=== PATIENT | male | born 1985 | race Caucasian/White ===

== ENCOUNTER 2020-04-21 12:19 | Emergency (ER) | payer BC, SELFPAY ==
[2020-04-21 12:40] VITALS: BP 147/91; PULSE 91; RESP 20; TEMP 37.3; O2SAT 100
--- NOTE | 2020-04-21 12:43 | ED.FALL ---
HPI - Fall General Stated Complaint: Rib pain Time Seen by Provider: 04/21/20 12:43 Source: patient and RN notes reviewed History of Present Illness HPI Narrative: Patient is a 34-year-old male who presents the urgent care with complaints of right rib pain due to a fall approximately 2 weeks ago off a angel at work. Patient states he had a week off and went back today and was unable to lift the heavy boxes. Patient states that work is wanting him to be put on restrictions or released to work before he goes back. Patient has not taken anything [id number] for his pain. Denies any other acute complaints. No acute distress noted. Patient read the plan of care. Related Data Allergies Allergy/AdvReac Type Severity Reaction Status Date / Time Fish Containing Products Allergy Unknown Rash Verified 04/21/20 12:37 Review of Systems Review of Systems: Narrative: CONSTITUTIONAL: Denies fever, chills, or sweats. EYES: Denies visual changes, redness, or discharge. ENT: Denies rhinorrhea, congestion, sore throat, or otalgia. CARDIOVASCULAR: Denies chest pain, palpitations, or edema. RESPIRATORY: Denies cough or dyspnea. GASTROINTESTINAL: Denies abdominal pain, nausea, vomiting, or diarrhea. GENITOURINARY: Denies dysuria or hematuria. SKIN: Denies rash or itching. MUSCULOSKELETAL: Reports of right side/rib pain. Denies back pain, joint pain, or myalgia. NEUROLOGIC: Denies headache, numbness, or weakness. All other systems reviewed are negative, except as documented in HPI. PMFSH Comments At the time of my signature, I reviewed and agree with the nursing past medical, surgical, social, and family history. There is no relevant family history pertinent to the patient complaint. Exam Narrative: Exam Narrative: GENERAL: This is a well-nourished, well-developed patient, in no apparent distress. HEAD: normocephalic, atraumatic. EYES: PERRL. Sclera clear/white. Vision is grossly intact. EARS: External ears normal NOSE: External nose normal with no obvious nasal discharge, nares without redness, no rhinorrhea. THROAT: Mucous membranes moist NECK: Neck supple CARDIOVASCULAR: Regular rate and rhythm without murmurs, gallops, or rubs. RESPIRATORY: Mild lateral/anterior right rib tenderness without any ecchymosis. Clear to auscultation. Breath sounds equal bilaterally. No wheezes, rales, or rhonchi. SKIN: warm, intact with no suspicious lesions or rash, good texture and turgor. NEURO: awake, alert, and oriented to person, place and time. There were no obvious focal neurologic abnormalities. EXTREMITIES: No clubbing, cyanosis, or edema. Course Vital Signs Vital signs: Vital Signs Temperature 99.2 F 04/21/20 12:40 Pulse Rate 91 04/21/20 12:40 Respiratory Rate 20 04/21/20 12:40 Blood Pressure 147/91 H 04/21/20 12:40 Pulse Oximetry 100 04/21/20 12:40 Temperature 99.2 F 04/21/20 12:40 Pulse Rate 91 04/21/20 12:40 Respiratory Rate 04/21/20 12:40 Blood Pressure 147/91 H 04/21/20 12:40 Pulse Oximetry 100 04/21/20 12:40 Reviewed?patient is informed that they may have pre-hypertension or hypertension based on a blood pressure reading in the department. I recommend the patient call the primary care provider listed on their discharge instructions or a physician of their choice this week to arrange follow-up for further evaluation of possible pre-hypertension or hypertension. MDM - Fall MDM Narrative Medical decision making narrative: Patient is aware that we do not put anybody on limitations due to work-related injuries nor do we release them back to work. Advised the patient to use Tylenol/ibuprofen as needed for pain. Avoid heavy lifting when possible. May use ice or heating pad for 20-minute intervals for comfort. Patient will need to follow-up with Workmen's Comp./human resources/occupational health in regards to work releases or limitations. Follow-up with your PCP within 2 to 5 days or for worsening sympto
== END 2020-04-21 12:55 | disposition home or self-care (01) ==
PROVIDERS: Emergency Provider Nurse Practitioner Family
DX: S20.211A Contusion of right front wall of thorax, initial encounter (principal); W17.89XA Other fall from one level to another, initial encounter; Y99.0 Civilian activity done for income or pay
CPT/HCPCS: 99212; G0463